=== PATIENT | female | born 1950 | race Caucasian/White ===

== ENCOUNTER → 2018-05-06 | Outpatient (CLI) | payer BC, MEDICARE ==
[~2018-05-06] MED LIST: ASA5UEC PO; ASPIR 8181 MG PO; CALCIUM 500 +1 EAC5 PO; CIPRO500 MG PO; ECOTRIN325 MG PO; FLOMAX0.4 MG PO; GLUCOVANCE 2.51 EAC1 PO; GLUCOVANCE 5-51 EACH PO; HYDROCODONE-AP1 EAC6 PO; JANUVIA 50 MG T50 M1 PO; LEVOTHYROXIN0.075 MG PO; LIPITOR 20 MG T20 M1 PO; LISINOPRIL5 MG PO; LOPRESSOR25 PO; NITROGLYCERIN0.4 MG SUBLING; OSTEO BI-FLEX1 EAC1 PO; PLAVIX 75 MG TA75 M1 PO; PREMPRO 0.3 MG1 EACH PO; PRIMPRO; TUMS PO; UNICOMPLEX M TA1 TA1 PO; ZESTRIL5 MG PO
== END ==
LOC: M.WC 00:11
DX: E11.622 Type 2 diabetes mellitus with other skin ulcer (principal); L97.821 Non-pressure chronic ulcer of other part of left lower leg limited to breakdown of skin; L90.5 Scar conditions and fibrosis of skin; I87.2 Venous insufficiency (chronic) (peripheral); E78.5 Hyperlipidemia, unspecified; I10 Essential (primary) hypertension; Z98.49 Cataract extraction status, unspecified eye; Z87.891 Personal history of nicotine dependence

== ENCOUNTER 2018-06-28 16:18 | Emergency (ER) | payer BC, MEDICARE, OTHER ==
[~2018-06-28] VITALS: Ht 165.1 cm; Wt 84.8 kg
[2018-06-28 16:42] LABS: ABSOLUTE BASOPHILS 0.1 thou/uL (0.0-0.2); ABSOLUTE EOSINOPHILS 0.3 thou/uL (0.0-0.7); ABSOLUTE LYMPHOCYTES 1.5 thou/uL (0.8-5.3); ABSOLUTE MONOCYTES 0.9 thou/uL (0.0-1.2); ABSOLUTE NEUTROPHILS 5.7 thou/uL (1.6-8.1); EOSINOPHILS 3.5 %; HEMATOCRIT 34.1 % (37.0-47.0); HEMOGLOBIN 11.1 gm/dL (12.0-15.0); LYMPHOCYTES 17.4 %; MCH 29.5 pg (26.0-34.0); MCHC 32.5 g/dL (28.0-37.0); MCV 90.8 fL (80.0-100.0); MONOCYTES 10.4 %; MPV 8.7 fl. (7.2-11.1); NUCLEATED RBCS 0 /100WBC; PLATELET COUNT* 321 thou/uL (150-400); POLYS 67.7 %; RBC 3.76 mil/uL (4.20-5.00); RDW-CV 15.2 % (10.5-14.5); WBC 8.5 thou/uL (4.0-11.0)
[2018-06-28 16:50] LABS: URINE BILIRUBIN NEGATIVE (Negative); URINE BLOOD NEGATIVE (Negative); URINE CLARITY CLEAR; URINE COLOR YELLOW; URINE GLUCOSE-RANDOM NEGATIVE (Negative); URINE KETONES NEGATIVE (Negative); URINE LEUKOCYTES-REFLEX NEGATIVE (Negative); URINE NITRITE-REFLEX NEGATIVE (Negative); URINE PROTEIN NEGATIVE (Negative); URINE SPECIFIC GRAVITY <= 1.005 (1.005-1.030); URINE UROBILINOGEN 0.2 E.U./dl (0.2-1.0)
[2018-06-28 16:53] LABS: CALCIUM 8.4 mg/dL (8.5-10.1); CREATININE 1.1 mg/dL (0.6-1.3); POTASSIUM 4.5 mmol/L (3.5-5.1)
[2018-06-28 16:58] LABS: ALBUMIN 3.4 g/dL (3.4-5.0); TOTAL BILIRUBIN 0.2 mg/dL (<0.1-1.0); TOTAL PROTEIN 7.5 g/dL (6.4-8.2)
[2018-06-28 18:18] VITALS: BP 138/56
--- NOTE | 2018-06-30 16:55 | EKG ---
[place] [address] ELECTROCARDIOGRAM REPORT Name: KAYE PERAZA Room: [facility]#: [id number] Admission: 06/28/18 Attend Phys: Discharge: 06/28/18 Date of : 48 Report #: [id number] THIS REPORT FOR: //name// [facility] ED Test Date: 2018-06-28 Test Time: 17:09:00 Pat Name: AKYEEARNEST PERAZA Department: Room: Gender: [employer] Work[employer]: ADENIKE : 1950 Requested By: Amisha Bravo Order Number: [id number] MD: Russell Dimas Measurements Intervals [place] Rate: 66 P: 14 VA: 218 QRS: 52 QRSD: 86 T: 36 QT: 375 QTc: 393 Interpretive Statements Sinus rhythm Borderline prolonged VA interval Low voltage, extremity leads Compared to ECG 10/29/2014 10:56:14 No significant changes Electronically Signed On 06-30-2018 16:55:32 CDT by Russell Dimas [email or web address] <ELECTRONICALLY SIGNED> By: Russell Dimas MD, [facility] 06/30/18 1655 08 08 Russell Dimas MD, FACC /EPI
== END 2018-06-28 18:18 | disposition home or self-care (01) ==
LOC: M.ERS 16:18
PROVIDERS: Nurse Practitioner Family
DX: K59.00 Constipation, unspecified (principal); E11.9 Type 2 diabetes mellitus without complications; I10 Essential (primary) hypertension; E78.00 Pure hypercholesterolemia, unspecified; Z95.5 Presence of coronary angioplasty implant and graft

== ENCOUNTER → 2018-09-09 | Outpatient (CLI) | payer MEDICARE, OTHER | LOC: M.NUC 09-02 07:30 | DX: R68.81 Early satiety (principal) ==

== ENCOUNTER → 2018-09-16 | Outpatient (CLI) | payer MEDICARE, OTHER | LOC: M.RAD 08:52 | DX: R68.81 Early satiety (principal); R19.7 Diarrhea, unspecified; R11.0 Nausea ==